=== PATIENT | male | born 1990 | race Caucasian/White ===

== ENCOUNTER 2020-11-23 11:20 | Emergency (ER) | payer MEDICAID ==
[~2020-11-23] VITALS: Ht 167.6 cm; Wt 105.0 kg
[2020-11-23] MEDS ORDERED: KETOROLAC 15MG/ML VIAL IV ONE (14:15)
[2020-11-23] MEDS ORDERED: IBUP-2028 MT (16:21)
[2020-11-23 17:11] VITALS: BP 126/87
== END 2020-11-23 17:14 | disposition home or self-care (01) ==
LOC: ER 11:20
DX: M25.561 Pain in right knee (principal)
CPT/HCPCS: 73562; 93971; 96374; 99284; J1885